=== PATIENT | female | born 1990 | race Caucasian/White ===

== ENCOUNTER → 2022-02-24 09:59 | Outpatient (CLI) | payer OTHER, SELFPAY ==
--- NOTE | 2022-02-24 10:06 | DI.RAD.S_ITS ---
PROCEDURE: XR KUB INDICATIONS: Irritable bowel vs constipation with diarrhea, assess stool TECHNIQUE: One view of the abdomen acquired. COMPARISON: None. FINDINGS: Surgical changes and devices: None. Bowel: Bowel gas pattern is nonspecific. Moderate amount of stool noted in the right proximal transverse colon. Soft tissues: No suspicious abdominal calcifications. Visualized solid organ contours appear normal in size. Bones: No suspicious bony lesions. IMPRESSION: Moderate stool in the right and proximal transverse colon. Bowel gas pattern is nonspecific. If patient's symptoms persist or worsen, consider CT scan of the abdomen/pelvis for additional evaluation. Dictated by: Savanah Oropeza MD, PhD on 02/24/2022 at 12:19 Approved by: Savanah Oropeza MD, PhD on 02/24/2022 at 12:20
== END ==
PROVIDERS: PCP Pediatrics; Referring Provider Pediatrics; Visit Provider Pediatrics
DX: K59.00 Constipation, unspecified (principal); F41.9 Anxiety disorder, unspecified; K58.9 Irritable bowel syndrome, unspecified
CPT/HCPCS: 74018

== ENCOUNTER → 2022-06-16 11:50 | Outpatient (CLI) | payer OTHER, SELFPAY ==
[2022-06-16 13:31] LABS: COVID19 -Nasal RAPID Negative (Negative)
== END ==
PROVIDERS: PCP Pediatrics; Visit Provider Surgery
DX: Z20.822 Contact with and (suspected) exposure to COVID-19 (principal); Z01.812 Encounter for preprocedural laboratory examination
CPT/HCPCS: 87635; C9803

== ENCOUNTER 2022-06-19 12:17 | Day surgery (SDC) | payer OTHER, SELFPAY ==
--- NOTE | 2022-06-19 | PATH_ITS ---
[facility] Accession Number: [id number] No. of containers..02 Tissue . 01 Material submitted: . PART A: duodenum - DUODENAL BIOPSIES PART B: colon - RANDOM COLON BIOPSIES . 01 Clinical history: . A: R/O CELIAC SPRU B: R/O MICROSCOPIC COLITIS . 01 Diagnosis: A. Duodenum, Biopsies: Duodenal mucosa with no diagnostic abnormality. Negative for active inflammation, features of sprue, dysplasia, or malignancy. . B. Random Colon, Biopsies: Colonic mucosa with no diagnostic abnormality. Negative for active, chronic, and microscopic colitis. Negative for dysplasia and malignancy. . MRV 06/22/2022 1843 Local . 01 Electronically signed: . Idalmis Sandoval MD, Pathologist NPI- [id number] . 01 Gross description: . Part A: DUODENAL BIOPSIES: Received in formalin are 3 fragment(s) of sheriff, soft tissue measuring 0.1 x 0.1 x 0.1 cm to 0.3 x 0.2 x 0.2 cm submitted entirely in 1 cassette(s) Part B: RANDOM COLON BIOPSIES: Received in formalin are multiple fragment(s) of sheriff, soft tissue measuring 0.1 x 0.1 x 0.1 cm to 0.2 x 0.2 x 0.2 cm submitted entirely in 1 cassette(s) /BENJAMIN 06/20/20222034 Local . 01 Pathologist provided ICD-10: R19.7 . 01 CPT . 302565, 412633 Specimen Comment: A courtesy copy of this report has been sent to [phone] Specimen Comment: [id number], Performed at: [facility] [address] [place], [place] [id number] MD Rocky Kan MD Phone: [phone]
[2022-06-19 12:45] VITALS: BMI 25.2
[2022-06-19 12:54] VITALS: BP 106/72; PULSE 102; RESP 16; TEMP 36.7; O2SAT 99
[2022-06-19] MEDS: LACTATED RINGERS 1,000 ML 42 ML IV (12:59)
--- NOTE | 2022-06-19 13:22 | PM.HP.1 ---
History of Present Illness History of Present Illness Chief complaint: COLONOSCOPY & EGD W/POSS BX'S Patient History Medical History (Updated 03/13/22 @ 07:51 by Elmo Patel MD) Anxiety Constipation Encounter for counseling regarding contraception Encounter to establish care Irritable bowel Family & Social History Social History: household members spouse Tobacco & Substance use: Tobacco type cigarettes,e-cigarettes Smoking Status Current every day smoker alcohol intake current alcohol intake frequency holiday/special occasion Substance Use Type does not use Meds Home Medications and Allergies Home Medications Medication Instructions Recorded Confirmed Type drospirenone 3 mg-ethinyl 1 tab PO DAILY #28 tabs 02/24/22 06/19/22 Rx estradiol 0.02 mg tablet ([facility] (28)) Allergies Allergy/AdvReac Type Severity Reaction Status Date / Time pineapple Allergy Severe hot, Verified 06/19/22 12:44 itchy, tongue swells venom-wasp Allergy Severe Anaphylaxis Verified 06/19/22 12:44 Review of Systems Review of Systems Narrative: Negative Exam Vital Signs (past 8 hours): - 06/19/22 12:54 Temperature 98.0 F Pulse Rate 102 H Respiratory Rate 16 Blood Pressure 106/72 Pulse Oximetry 99 Oxygen Delivery Method Room Air Oxygen Delivery Method Room Air Narrative Exam Narrative: Awake alert and oriented x3, pupils equal round reactive to light, oropharynx clear, heart regular rate and rhythm, lungs clear to auscultation bilaterally, abdomen nontender and nondistended, extremities without edema, no gross neurologic deficits noted Assessment & Plan Assessment & Plan narrative: GERD, diarrhea, for EGD and colonoscopy Time Spent With Patient Critical Care time: I spent a total of [] minutes of critical care time on this patient's care today; this time is exclusive of procedural time.
--- NOTE | 2022-06-19 13:38 | PM.OP.EGD ---
Operative Date/Time/Diagnoses Date of procedure: 06/19/22 Procedure & Clinicians Study performed: EGD with cold biopsy Indications: Unexplained diarrhea, persistent GERD symptoms, melena Procedure Notes Procedure in detail: Prior to the procedure, history and physical was performed, and patient medications and allergies were reviewed. Preprocedure nursing history and assessment was reviewed. Patient identification and proposed procedure were verified by the physician and nurse in the procedure room. The physical status of the patient was reassessed after the procedure. After informed consent was obtained including risks, benefits, and alternatives, the scope was passed under direct vision. Throughout the procedure, the patient's blood pressure, pulse, and oxygen saturations were monitored continuously. The upper endoscope was introduced through the mouth and advanced to the 2nd portion of the duodenum. Retroflexion was performed in the stomach. The patient tolerated the procedure well. The entire examined esophagus was normal appearing. Z-line was regular and was located at 39 cm. The entire examined stomach was normal appearing. Hill grade 1 GE junction configuration. Normal-appearing examined duodenum. Biopsies taken to rule out celiac sprue Impression: Normal appearing esophagus. Regular Z-line Normal appearing stomach. Normal appearing duodenum. Biopsied to rule out celiac sprue Complications: other (EBL minimal. No complications) Post-procedure Plan for aftercare: Follow-up pathology results Follow Anti-reflux precautions Proceed with colonoscopy today
--- NOTE | 2022-06-19 13:56 | PM.OP.COLON ---
Operative Date/Time/Diagnoses Date of procedure: 06/19/22 Procedure & Clinicians Study performed: Colonoscopy with cold biopsy Indications: Unexplained diarrhea. This is the patient's 1st colonoscopy. Procedure Notes Procedure in detail: Prior to the procedure, history and physical was performed, and patient medications and allergies were reviewed. Preprocedure nursing history and assessment was reviewed. Patient identification and proposed procedure were verified by the physician and nurse in the procedure room. The physical status of the patient was reassessed after the procedure. After informed consent was obtained including risks, benefits, and alternatives, the scope was passed under direct vision. Throughout the procedure, the patient's blood pressure, pulse, and oxygen saturations were monitored continuously. The colonoscope was introduced through the anus and advanced to the cecum as identified by the appendiceal orifice and ileocecal valve. The terminal ileum was intubated. The patient tolerated the procedure well. Bowel prep was deemed adequate to detect polyps greater than 5 mm. Perianal and digital rectal examinations were unremarkable. Retroflexion in the rectum was unrevealing. The entire examined colon was normal appearing except for the sigmoid where mucosa appeared slightly congested. Biopsies were taken throughout the colon to rule out microscopic colitis. The terminal ileum was normal appearing. Impression: Normal appearing colonic mucosa except in the sigmoid where mucosa was slightly congested appearing. Biopsies taken from throughout the colon to rule out microscopic colitis Normal-appearing terminal ileum Complications: other (EBL minimal. No complications) Post-procedure Plan for aftercare: Follow-up of pathology results No recommendation regarding timing of next colonoscopy due to young age Resume home medications Resume previous diet Patient has a contact number available for emergencies. The signs and symptoms of potential delayed complications were discussed with the patient. Return to normal activities tomorrow. Written discharge instructions were provided to the patient. Discharge home with escort
[2022-06-19 14:00] VITALS: BP 92/62; PULSE 88; RESP 17; TEMP 36.9; O2SAT 98
[2022-06-19 14:05] VITALS: BP 97/67; PULSE 79; RESP 20; O2SAT 99
[2022-06-19 14:26] VITALS: BP 104/70; PULSE 76; RESP 12; TEMP 36.1; O2SAT 100
== END 2022-06-19 14:30 | disposition home or self-care (01) ==
PROVIDERS: PCP Family Medicine; Referring Provider Internal Medicine; Visit Provider Internal Medicine
PROC: 0DJ08ZZ Inspection of Upper Intestinal Tract, Via Natural or Artificial Opening Endoscopic (ICD-10-PCS; CPT 43235; principal; 2022-06-19 13:30)
PROC: 0DJD8ZZ Inspection of Lower Intestinal Tract, Via Natural or Artificial Opening Endoscopic (ICD-10-PCS; CPT 45378; 2022-06-19 13:30)
DX: R19.7 Diarrhea, unspecified (principal); K92.1 Melena; K21.9 Gastro-esophageal reflux disease without esophagitis
CPT/HCPCS: 45380; 43239; J2704; J3010

== ENCOUNTER → 2023-01-09 10:36 | Outpatient (CLI) | payer OTHER, SELFPAY ==
[2023-01-09 11:42] LABS: Alanine Aminotransferase 18 IU/L (<35); Albumin 4.3 g/dL (3.5-5.0); Albumin Globulin Ratio 1.5 (1.0-2.8); Alkaline Phosphatase 49 U/L (38-126); Aspartate Aminotransferase 20 IU/L (14-36); BUN Creatinine Ratio 13.7 (6-22); Bilirubin Total 0.5 mg/dL (0.2-1.3); Blood Urea Nitrogen 7 mg/dL (7-17); Calcium 8.8 mg/dL (8.4-10.2); Carbon Dioxide 23 mmol/L (22-32); Chloride 104 mmol/L (98-107); Estimated Glomerular Filt Rate > 60 mL/min (>60); Globulin 2.8 g/dL (1.7-4.1); Glucose 96 mg/dL (70-100); HEMOLYSIS < 15 (0-50); Potassium 3.7 mmol/L (3.4-5.1); Sodium 136 mmol/L (137-145); Total Protein 7.1 g/dL (6.3-8.2)
[2023-01-09 11:46] LABS: High Sensitivity CRP - Cardiac 0.6 mg/L (1.0-3.0)
[2023-01-09 13:18] LABS: Free T3, Triiodothyronine Free 4.07 pg/mL (2.77-5.27); Free T4, Direct Thyroxine 1.27 ng/dL (0.78-2.19)
[2023-01-09 13:32] LABS: Thyroid Stimulating Hormone 2.05 uIU/mL (0.47-4.68)
[2023-01-10 07:34] LABS: Sex Hormone Binding Globulin 36.8 nmol/L (24.6-122.0)
[2023-01-12 22:20] LABS: Estrogen 173 pg/mL (.)
[2023-01-16 07:50] LABS: Percent Free Testosterone 1.82 % (0.50-2.80); Testosterone Total 32.9 ng/dL (10.0-55.0)
[2023-01-23 22:22] LABS: % Free Progesterone 1.5 % (.); Free Progesterone 2.5 ng/dL (.); Progesterone, Serum 168 ng/dL (.)
== END ==
PROVIDERS: PCP Family Medicine; Referring Provider Family Medicine; Visit Provider Family Medicine
DX: E34.9 Endocrine disorder, unspecified (principal); E55.9 Vitamin D deficiency, unspecified; K52.9 Noninfective gastroenteritis and colitis, unspecified; R14.0 Abdominal distension (gaseous); R53.83 Other fatigue
CPT/HCPCS: 36415; 80053; 82306; 82627; 82672; 84144; 84270; 84402; 84403; 84439; 84443; 84481; 84999; 86140

== ENCOUNTER 2023-02-08 11:24 | Day surgery (SDC) | payer OTHER, SELFPAY ==
[2023-02-05 08:06] VITALS: BMI 25.4
[2023-02-08] VITALS (9 sets, daily range): BP systolic 100–111; BP diastolic 62–75; PULSE 62–86; RESP 12–17; TEMP 36.1–36.6; O2SAT 98–100; BMI 23.8
--- NOTE | 2023-02-08 | PATH_ITS ---
[facility] Accession Number: [id number] No. of containers..01 Tissue . 01 Material submitted: . fallopian tube - BILATERAL FALLOPIAN TUBES . 01 Diagnosis: Bilateral Fallopian Tubes: First described fallopian tube, complete cross-sections; negative for significant atypia. Second described fallopian tube, complete cross-sections, with a benign paratubal cyst (3 mm); negative for significant atypia. MRV 02/12/2023 1517 Local . 01 Electronically signed: . Keesha Richardson MD, Pathologist NPI- [id number] . 01 Gross description: . The specimen is received in formalin labeled with the patient's name, , and bilateral fallopian tubes consists of two unoriented, violaceous, fimbriated fallopian tubes. The first measures 3.8 cm in length and 0.7 cm in diameter. No paratubal cysts are seen. The external surface is inked blue. The second measures 5.5 cm in length and 1.0 cm in diameter. A single serous fluid-filled, smooth-lined, paratubal cyst is noted measuring 0.3 cm in greatest dimension. The external surface is inked black. Funeral Attendant sections to include each bisected fimbriae, paratubal cyst, and cross-sections of tube are submitted in cassettes A1-A2. ([id number]) /MRV 02/09/2023 1304 Local . 01 Pathologist provided ICD-10: Z30.2 . 01 CPT . 926672 Specimen Comment: A courtesy copy of this report has been sent to [phone] Performed at: [facility] [address] [place] [address], [place], [place] [id number] MD Rocky Kan MD Phone: [phone]
--- NOTE | 2023-02-08 13:02 | SUR.PREOP ---
Notified patient of continued delay. Verbalizes understanding. Advised patient that she could return to the Surgical waiting room at 4:00 p.m
--- NOTE | 2023-02-08 16:33 | P.HPOB_ITS ---
History of Present Illness History of Present Illness Narrative: Nubia Corado is a 32 year old female 1 para 0 who presents for a laparoscopic bilateral salpingectomy for sterilization. [facility] Medical History ADHD (~2004) Anxiety (~2009) Astigmatism Autism Chicken pox (~1995) Constipation Encounter for counseling regarding contraception Encounter to establish care Foot pain (~2009) Heavy menstrual period (~2000) Irregular menstrual cycle (~2000) Irritable bowel Migraines (~2002) Ovarian cyst (~2015) Plantar warts (~1998) Substance abuse (~2007) Surgical History Anesthesia History of (~2010) History of oral surgery (~2001) Family History Mother Multiple sclerosis Father Mental health problem Grandfather Pneumonia Grandmother Hypertension Grandfather Alzheimer's dementia Grandmother Mental health problem Social History household members: spouse Smoking Status: Current every day smoker Tobacco: How many years used: 14 Smokeless tobacco user: other (nicotine vape ) alcohol intake: current substance use type: former substance user and marijuana (former ) Meds Home Medications and Allergies Home Medications Medication Instructions Recorded Confirmed Type epinephrine 0.3 mg/0.3 mL 0.3 mg (0.3 mL) IM ONCE #2 ea 02/06/23 02/08/23 Rx injection, auto-injector prasterone (dhea) 50 mg capsule 100 mg PO DAILY 02/08/23 02/08/23 History (DHEA) Allergies Allergy/AdvReac Type Severity Reaction Status Date / Time pineapple Allergy Severe hot, Verified 01/23/23 15:03 itchy, tongue swells venom-wasp Allergy Severe Anaphylaxis Verified 01/23/23 15:03 Exam Vital Signs (past 8 hours): - 02/08/23 15:57 Temperature 97.5 F L Pulse Rate 86 Respiratory Rate 16 Blood Pressure 103/72 Pulse Oximetry 100 Oxygen Delivery Method Room Air Oxygen Delivery Method Room Air Narrative Exam Narrative: HEENT: No thyromegaly, no anterior cervical or supraclavicular lymphadenopathy. Lungs:Clear to auscultation bilaterally, no wheezes. Cardiovascular: Regular rate and rhythm, no murmurs, rubs, or gallops. Abdomen: No scars. No hepatosplenomegaly. No masses palpable. External genitalia: Normal Vagina: Normal Cervix: Normal Bimanual exam: 6 Week size uterus. Mobile. Extremities: No edema Assessment & Plan Assessment & Plan narrative: Assessment: 32-year-old 1 para 0 who desires permanent sterilization Plan: Laparoscopic bilateral salpingectomy The risks, benefits, and alternatives to the procedure were explained to the patient. The risks including bleeding, infection, injury to the bowel, bladder, or ureters. She understands these risks and agrees to proceed. A full par Q was held and consent form was signed. Time Spent With Patient Time with patient: less than 30 minutes
--- NOTE | 2023-02-08 16:35 | SUR.OPER ---
Lithotomy on padded OR bed, head on pillow, arms secured on padded arm boards at <90 degrees abduction. Legs secured in padded yellow fins stirrups.
--- NOTE | 2023-02-08 16:36 | PM.PREOP ---
Pre-operative Note COVID-19 Criteria for continued procedure: Non-surgical alternatives not available or appropriate per current SOC Interval Note History & Physical reviewed/Exam performed by Physician: Yes Changes to H&P: No H&P completed within 30 days and has changed as indicated here:: 02/08/23
[2023-02-08] MEDS: BUPIVACAINE 0.25% (PF) 30 ML, EPINEPHrine 0.15 MG INJ (17:29)
--- NOTE | 2023-02-08 17:57 | PM.GYNOP.1 ---
Operative Date/Time/Diagnoses Date of procedure: 02/08/23 Time of procedure: 17:57 Pre-op diagnosis: Desires permanent sterilization Post-op diagnosis: same Procedure & Clinicians Procedure: Procedures Operation Date: 02/08/23 14:00 Actual Procedure Side Surgeon p Laparoscopic Salpingectomy Bilateral Sabine Roman MD Indications: Desires permanent sterilization Surgeon: Sabine Roman Anesthesia Type: General and Local Operative Notes Findings: 8 week size anteverted uterus Posterior fundal fibroid measuring 2 cm that was subserosal Normal ovaries bilaterally Normal tubes bilaterally Normal liver Normal appendix Significant endometriotic lesions of the anterior and posterior cul-de-sac as well as bilateral ovarian fossa and fundus of the uterus. Largest lesion measuring 8 mm. These were both clear and blue lesions. Endometriotic lesion of the serosa of the colon measuring 7 mm. 2 cm x 1 cm pedunculated fibroid coming off of the colon Closure Type: primary Specimen(s): left tube and right tube Estimated blood loss (mL): 10 Blood products transfused: none Procedure in detail: After informed consent was obtained, the patient was taken to the operating room where she was placed in the dorsal supine position. After adequate general endotracheal anesthesia was achieved, she was placed in the dorsal lithotomy position, and prepped and draped in the usual sterile fashion. A time-out was performed. A bivalve speculum was placed into the vagina and the anterior lip of the cervix was grasped with a single-tooth tenaculum. The cervical os was sequentially dilated until the Zumi uterine manipulator could pass easily into the endometrial cavity. The single-tooth tenaculum was removed from the anterior lip of the cervix. The bivalve speculum was removed from the vagina. Attention was turned to the abdomen where 6 cc of 0.5% Marcaine with epinephrine were injected in the umbilical fold. A 5 mm incision was made. The Veress needle was placed into the peritoneal cavity, and its placement confirmed by aspiration and drop test. The abdominal cavity was insufflated with 3 L of CO2. The Veress needle was removed, and a 5 mm trocar was placed without difficulty. Two other incisions were made 4 cm lateral to the midline at the level of the umbilicus after 6 cc of 0.5% Marcaine with epinephrine were injected. Two 5 mm trocars were placed under direct visualization. The abdomen and pelvis were examined with the findings noted above. The right tube was grasped with an atraumatic grasper. Using the power seal, the mesosalpinx was cauterized and cut all the way down to the cornua of the uterus. The tube was amputated at the cornua. The tube was removed through the right lateral trocar. This was repeated on the patient's left side. There was a small amount of bleeding noted from the cornual region of the left uterus. This was cauterized with the power seal for hemostasis. The pelvis was irrigated with warm normal saline. There was no bleeding noted. The instruments were removed from the abdomen. The CO2 was allowed to escape. The incisions were repaired with 4-0 Monocryl in a subcuticular fashion. Steri-Strips and Allevyn dressings were placed. The Zumi uterine manipulator was removed from the uterus. Sponge, lap, and instrument counts were correct x2. The patient tolerated the procedure well, and was taken to PACU in stable condition. Complications: none Post-operative Condition: stable Disposition: PACU Plan for aftercare: Home after recovery
[2023-02-08] MEDS: ONDANSETRON 4 MG/2 ML INJ IV (18:00)
--- NOTE | 2023-02-08 18:12 | SUR.PHASEI ---
Dr Murray notified of patient nausea after zofran and history of car sickness.
[2023-02-08] MEDS: SCOPOLAMINE 1 PATCH TOP (18:16)
[2023-02-08] MEDS: ACETAMINOPHEN IV 1,000 MG/100 ML VIAL 400 MG IV (18:17)
[2023-02-08] MEDS: LACTATED RINGERS 1,000 ML 100 ML IV (18:19)
[2023-02-08] MEDS: BENZOCAINE/MENTHOL 1 LOZ PKT 1 EACH PO (18:52)
--- NOTE | 2023-02-08 19:16 | SUR.PHASEII ---
Dr Murray called for Cepacol sawyer order for irritated throat adn irritated cough. lungs clear. no sob. coughing subsided with sawyer.
== END 2023-02-08 19:07 | disposition home or self-care (01) ==
PROVIDERS: PCP Family Medicine; Referring Provider Obstetrics & Gynecology; Visit Provider Obstetrics & Gynecology
PROC: 0UT74ZZ Resection of Bilateral Fallopian Tubes, Percutaneous Endoscopic Approach (ICD-10-PCS; CPT 58661; principal; 2023-02-08 14:00)
DX: Z30.2 Encounter for sterilization (principal); D25.2 Subserosal leiomyoma of uterus; D12.6 Benign neoplasm of colon, unspecified; N83.8 Other noninflammatory disorders of ovary, fallopian tube and broad ligament
CPT/HCPCS: 58661; J0131; J0171; J1885; J2250; J2405; J2704; J3010

== ENCOUNTER → 2023-02-12 14:51 | Outpatient (CLI) | payer OTHER, SELFPAY ==
[2023-02-12 15:57] LABS: Appearance Urine UA CLEAR; Bilirubin Urine UA NEGATIVE (NEGATIVE); Color Urine UA YELLOW; Glucose Urine UA NEGATIVE (Negative); Ketones Urine UA NEGATIVE (NEGATIVE); Leukocyte Esterase Urine UA TRACE (NEGATIVE); Nitrite Urine UA NEGATIVE (Negative); Occult Blood Urine UA NEGATIVE (Negative); Protein Urine UA NEGATIVE (Negative); Urobilinogen Urine UA 0.2 E.U./dL (0.2)
[2023-02-12 16:14] LABS: pH Urine UA 7.5 (4.5-8.0)
[2023-02-12 16:26] LABS: Bacteria Urine Occasional (0-1); RBC Urine None Seen (0-5/HPF); Squamous Epithelial Cell Urine 0-1 /HPF (0-5/HPF); WBC Urine 5-10/HPF (0-5/HPF)
[2023-02-12 16:27] LABS: Culture Indicated Urine Specimen Cultured
== END ==
PROVIDERS: PCP Family Medicine; Referring Provider Obstetrics & Gynecology; Visit Provider Obstetrics & Gynecology
DX: R30.0 Dysuria (principal)
CPT/HCPCS: 81001; 87086

== ENCOUNTER → 2023-05-24 12:39 | Outpatient (CLI) | payer OTHER, SELFPAY | PROVIDERS: PCP Family Medicine; Visit Provider Nurse Practitioner Family | DX: R30.0 Dysuria (principal) | CPT/HCPCS: 87086 ==

== ENCOUNTER 2023-05-24 13:10 | Emergency (ER) | payer OTHER, SELFPAY ==
[2023-05-24] VITALS (9 sets, daily range): BP systolic 92–124; BP diastolic 60–69; PULSE 74–83; RESP 18; TEMP 36.9; O2SAT 97–100; BMI 24.8
[2023-05-24 13:37] LABS: Add Manual Diff / Slide Review NO; Basophils Absolute Auto 100 /uL (0-100); Basophils Percent Auto 0.8 % (0-2); Eosinophils Absolute Auto 100 /uL (0-450); Eosinophils Percent Auto 0.7 % (2-4); Hematocrit 37.8 % (36-46); Hemoglobin 12.8 g/dL (12.0-16.0); Lymphocytes Absolute Auto 4000 /uL (1100-4500); Lymphocytes Percent Auto 28.8 % (25-40); Mean Corpuscular HGB Conc 33.9 % (30-36); Mean Corpuscular Hemoglobin 29.1 PG (26-34); Mean Corpuscular Volume 85.8 fL (80-100); Monocytes Absolute Auto 900 /uL (0-900); Monocytes Percent Auto 6.6 % (3-14); Neutrophils Absolute Auto 8700 /uL (1500-7000); Neutrophils Percent Auto 63.1 % (50-75); Platelet Count 446 X10^3/uL (150-400); Red Blood Cell Count 4.41 X10^6/uL (4.0-5.2); Red Cell Distribution Width 12.6 % (11.6-14.8); White Blood Cell Count 13.8 X10^3/uL (4.5-11.0)
--- NOTE | 2023-05-24 13:37 | DI.CT.S_ITS ---
PROCEDURE: CT ABDOMEN PELVIS W CON INDICATIONS: abd pain with UTI, eval for pyelo, appy TECHNIQUE: After the administration of intravenous contrast, axial sections acquired from the lung bases to the pubic symphysis. Coronal and sagittal reformats were performed. For radiation dose reduction, the following was used: automated exposure control, adjustment of mA and/or kV according to patient size. COMPARISON: None. FINDINGS: Image quality: Excellent. Lung bases: Unremarkable. Heart: No significant findings. ABDOMEN: Liver: Unremarkable. Gallbladder: Unremarkable. Biliary ducts: Unremarkable. Pancreas: Unremarkable. Spleen: Unremarkable. Adrenal Glands: Unremarkable. Kidneys and Ureters: Bilateral, homogeneous enhancement. Marked right urothelial hyperenhancement. Stomach and Bowel: Stomach, small bowel loops, and colon are unremarkable. Normal appendix. Peritoneum: No abnormal intraperitoneal fluid. No free air. Ventral Wall: No hernias. Abdominal Nodes: No retroperitoneal or mesenteric adenopathy by size criteria. Vessels: Aorta and inferior vena cava are normal in size. PELVIS: Pelvic Organs: Multiple small uterine fibroids.. Bladder: Unremarkable. Pelvic Nodes: No enlarged lymph nodes. Miscellaneous: No hernias are seen. Bones: Unremarkable. IMPRESSION: Marked right urothelial hyperenhancement, concerning for an ascending urinary tract infection. No CT evidence of pyelonephritis. Normal appendix. Dictated by: Dimitri Smith M.D. on 05/24/2023 at 14:10 Approved by: Dimitri Smith M.D. on 05/24/2023 at 14:12
[2023-05-24 13:44] LABS: Alanine Aminotransferase 18 IU/L (<35); Albumin 4.4 g/dL (3.5-5.0); Albumin Globulin Ratio 1.4 (1.0-2.8); Alkaline Phosphatase 67 U/L (38-126); Aspartate Aminotransferase 22 IU/L (14-36); BUN Creatinine Ratio 12.5 (6-22); Bilirubin Total 0.7 mg/dL (0.2-1.3); Blood Urea Nitrogen 7 mg/dL (7-17); Calcium 9.4 mg/dL (8.4-10.2); Carbon Dioxide 25 mmol/L (22-32); Chloride 101 mmol/L (98-107); Estimated Glomerular Filt Rate > 60 mL/min (>60); Globulin 3.1 g/dL (1.7-4.1); Glucose 88 mg/dL (70-100); HEMOLYSIS < 15 (0-50); Lipase 97 U/L (23-300); Potassium 3.6 mmol/L (3.4-5.1); Sodium 136 mmol/L (137-145); Total Protein 7.5 g/dL (6.3-8.2)
[2023-05-24] MEDS: MORPHINE 2 MG/ML INJ IV (13:50)
[2023-05-24] MEDS: ONDANSETRON 4 MG/2 ML INJ IV (13:50)
[2023-05-24] MEDS: SODIUM CHLORIDE 0.9% 500 ML 1000 ML IV (13:51)
--- NOTE | 2023-05-24 13:55 | ED_ITS ---
HPI - Abdominal Pain <Tameka Aparicio PA-C - Last Filed: 05/24/23 16:51> General Chief Complaint: Abdominal Pain Stated Complaint: UTI+/ pain Rside/ T-2/ WIC sent over Time Seen by Provider: 05/24/23 13:24 Source: patient Mode of arrival: Ambulatory History of Present Illness HPI narrative: Patient is a 32-year-old female who presents with right lower abdominal pain that radiates into her back. She was seen in this morning in the walk-in clinic and diagnosed with a urinary tract infection and presents to the emergency department for further evaluation. She denies any recent fever or chills, nausea vomiting. Has not seen any hematuria but does endorse dysuria or frequency. Pain is worse with ambulation. Has not taken any pain medication. Related Data Home Medications Medication Instructions Recorded Confirmed prasterone (dhea) 50 mg capsule 100 mg PO DAILY 02/08/23 05/24/23 (DHEA) Previous Rx's Medication Instructions Recorded epinephrine 0.3 mg/0.3 mL 0.3 mg (0.3 mL) IM ONCE #2 ea 02/06/23 injection, auto-injector ondansetron 4 mg disintegrating 4 mg PO Q6H PRN nausea and 02/08/23 tablet vomiting #10 tabs oxycodone 5 mg tablet 5 mg PO Q4H PRN pain #14 tabs 02/08/23 nitrofurantoin 100 mg PO BID #10 caps 02/12/23 monohydrate/macrocrystals 100 mg capsule (Macrobid) sulfamethoxazole 800 1 tab PO BID #14 tabs 05/24/23 mg-trimethoprim 160 mg tablet (Bactrim DS) Allergies Allergy/AdvReac Type Severity Reaction Status Date / Time pineapple Allergy Severe hot, Verified 05/24/23 12:36 itchy, tongue swells venom-wasp Allergy Severe Anaphylaxis Verified 05/24/23 12:36 Review of Systems <Tameka Aparicio PA-C - Last Filed: 05/24/23 16:51> Review of Systems ROS Unobtainable: All systems reviewed & are unremarkable except as noted in HPI and below Patient History <Tameka Aparicio PA-C - Last Filed: 05/24/23 16:51> Medical History ADHD (~2004) Anxiety (~2009) Astigmatism Autism Chicken pox (~1995) Constipation Encounter for counseling regarding contraception Encounter to establish care Foot pain (~2009) Heavy menstrual period (~2000) Irregular menstrual cycle (~2000) Irritable bowel Migraines (~2002) Ovarian cyst (~2015) Plantar warts (~1998) Substance abuse (~2007) Surgical History Anesthesia History of (~2010) History of oral surgery (~2001) Family History Mother Multiple sclerosis Father Mental health problem Grandfather Pneumonia Grandmother Hypertension Grandfather Alzheimer's dementia Grandmother Mental health problem Social History household members: spouse Smoking Status: Current every day smoker Tobacco: How many years used: 14 Smokeless tobacco user: other (nicotine vape ) alcohol intake: current substance use type: former substance user and marijuana (former ) Smoking Status: Current every day smoker tobacco type: vaping alcohol intake frequency: holidays/special occasions only Substance Use Type: does not use and former substance user Exam <Tameka Aparicio PA-C - Last Filed: 05/24/23 16:51> Narrative Exam Narrative: GENERAL: 32 year old patient appears stated age. Well-developed patient, in mild distress. NEURO: AOx3. HEAD: Atraumatic. Normocephalic. EYES: Pupils equal round and reactive. Extraocular motions intact. No scleral icterus. No injection or drainage. ENT: Nose without bleeding or purulent drainage. Airway patent. NECK: Trachea midline. Non tender CARDIOVASCULAR: Regular rate and rhythm without murmurs, gallops, or rubs. RESPIRATORY: Clear to auscultation. Breath sounds equal bilaterally. No wheezes, rales, or rhonchi. GASTROINTESTINAL: Abdomen soft, focal right lower tenderness superior to McBurney's, negative Messer's, positive CVA tenderness on the right. EXTREMITIES: No edema or joint tenderness. SKIN: No rash or erythema of visible areas Initial Vital Signs Initial Vital Signs: Vital Signs Temperature 98.4 F 05/24/23 13:13 Pulse Rate 76 05/24/23 13:13 Respiratory Rate 18 05/24/23 13:13 Blood Pressure 124/60 05/24/23 13:13 Pulse Oximetry 100 05/24/23 13:13 Oxygen Delivery Method Room Air 05/24/23 13:13 <Lloyd Hannon MD - Last Filed: 06/08/23 08:38> Initial Vital Signs Initial Vital Signs: Vital Signs Temperature 98.4 F 05/24/23 13:13 Pulse Rate 76 05/24/23 13:13 Respiratory Rate 18 05/24/23 13:13 Blood Pressure 124/60 05/24/23 13:13 Pulse Oximetry 100 05/24/23 13:13 Oxygen Delivery Method Room Air 05/24/23 13:13 Course <Tameka Aparicio PA-C - Last Filed: 05/24/23 16:51> Orders Ordered: Discontinued Medications Sodium Chloride (Normal Saline 0.9%) 500 mls @ 1,000 mls/hr IV BOLUS ONE Stop: 05/24/23 14:06 Last Infusion: 05/24/23 14:20 Dose: Infused Documented By: Admin: 05/24/23 13:51 Dose: 1,000 mls/hr Documented By: Ceftriaxone Sodium 1,000 mg/ (Sodium Chloride) 100 mls @ 200 mls/hr IV NOW ONE Stop: 05/24/23 14:19 Last Infusion: 05/24/23 15:20 Dose: Infused Documented By: Admin: 05/24/23 14:48 Dose: 200 mls/hr Documented By: Morphine Sulfate (Morphine 2 Mg/Ml Inj) 2 mg IV NOW ONE Stop: 05/24/23 13:38 Last Admin: 05/24/23 13:50 Dose: 2 mg Documented By: Ondansetron HCl (Ondansetron 4 Mg/2 Ml Inj) 4 mg IV NOW PRN PRN Reason: Nausea And Vomiting Ondansetron HCl (Ondansetron 4 Mg/2 Ml Inj) 4 mg IV NOW ONE Stop: 05/24/23 13:38 Last Admin: 05/24/23 13:50 Dose: 4 mg Documented By: ST Vital Signs Vital signs: Vital Signs - 8 hr 05/24/23 13:13 05/24/23 14:10 05/24/23 14:30 Temperature 98.4 F Pulse Rate 76 81 74 Respiratory Rate 18 Blood Pressure 124/60 Pulse Oximetry 100 97 98 Oxygen Delivery Method Room Air 05/24/23 14:37 05/24/23 14:37 05/24/23 15:33 Temperature 98.5 F Pulse Rate 77 Respiratory Rate Blood Pressure 102/68 Pulse Oximetry 99 Oxygen Delivery Method Room Air 05/24/23 14:54 05/24/23 14:54 05/24/23 14:55 Temperature Pulse Rate 82 Respiratory Rate Blood Pressure 92/68 104/68 Pulse Oximetry 97 Oxygen Delivery Method 05/24/23 14:55 05/24/23 15:00 05/24/23 15:00 Temperature Pulse Rate 83 77 Respiratory Rate Blood Pressure 99/61 Pulse Oximetry 99 100 Oxygen Delivery Method 05/24/23 15:22 05/24/23 15:22 Temperature Pulse Rate 76 Respiratory Rate Blood Pressure 98/69 Pulse Oximetry 99 Oxygen Delivery Method <Lloyd Hannon MD - Last Filed: 06/08/23 08:38> Orders Ordered: Discontinued Medications Sodium Chloride (Normal Saline 0.9%) 500 mls @ 1,000 mls/hr IV BOLUS ONE Stop: 05/24/23 14:06 Last Infusion: 05/24/23 14:20 Dose: Infused Documented By: Admin: 05/24/23 13:51 Dose: 1,000 mls/hr Documented By: Ceftriaxone Sodium 1,000 mg/ (Sodium Chloride) 100 mls @ 200 mls/hr IV NOW ONE Stop: 05/24/23 14:19 Last Infusion: 05/24/23 15:20 Dose: Infused Documented By: Admin: 05/24/23 14:48 Dose: 200 mls/hr Documented By: Morphine Sulfate (Morphine 2 Mg/Ml Inj) 2 mg IV NOW ONE Stop: 05/24/23 13:38 Last Admin: 05/24/23 13:50 Dose: 2 mg Documented By: Ondansetron HCl (Ondansetron 4 Mg/2 Ml Inj) 4 mg IV NOW PRN PRN Reason: Nausea And Vomiting Ondansetron HCl (Ondansetron 4 Mg/2 Ml Inj) 4 mg IV NOW ONE Stop: 05/24/23 13:38 Last Admin: 05/24/23 13:50 Dose: 4 mg Documented By: ST Vital Signs Vital signs: Vital Signs - 8 hr 05/24/23 13:13 05/24/23 14:10 05/24/23 14:30 Temperature 98.4 F Pulse Rate 76 81 74 Respiratory Rate 18 Blood Pressure 124/60 Pulse Oximetry 100 97 98 Oxygen Delivery Method Room Air 05/24/23 14:37 05/24/23 14:37 05/24/23 15:33 Temperature 98.5 F Pulse Rate 77 Respiratory Rate Blood Pressure 102/68 Pulse Oximetry 99 Oxygen Delivery Method Room Air 05/24/23 14:54 05/24/23 14:54 05/24/23 14:55 Temperature Pulse Rate 82 Respiratory Rate Blood Pressure 92/68 104/68 Pulse Oximetry 97 Oxygen Delivery Method 05/24/23 14:55 05/24/23 15:00 05/24/23 15:00 Temperature Pulse Rate 83 77 Respiratory Rate Blood Pressure 99/61 Pulse Oximetry 99 100 Oxygen Delivery Method 05/24/23 15:22 05/24/23 15:22 Temperature Pulse Rate 76 Respiratory Rate Blood Pressure 98/69 Pulse Oximetry 99 Oxygen Delivery Method MDM - Abdominal Pain <Tameka Aparicio PA-C - Last Filed: 05/24/23 16:51> Lab Data 05/24/23 13:24 05/24/23 13:24 Labs: Lab Results 05/24/23 Range/Units 13:24 WBC 13.8 H (4.5-11.0) X10^3/uL RBC 4.41 (4.0-5.2) X10^6/uL Hgb 12.8 (12.0-16.0) g/dL Hct 37.8 (36-46) % MCV 85.8 (80-100) fL MCH 29.1 (26-34) PG MCHC 33.9 (30-36) % RDW 12.6 (11.6-14.8) % Plt Count 446 H (150-400) X10^3/uL Neut % (Auto) 63.1 (50-75) % Lymph % (Auto) 28.8 (25-40) % [place] % (Auto) 6.6 (3-14) % Eos % (Auto) 0.7 L (2-4) % Baso % (Auto) 0.8 (0-2) % Neut # (Auto) 8700 H (9324-2615) /uL Lymph # (Auto) 4000 (2481-5956) /uL [place] # (Auto) 900 (0-900) /uL Eos # (Auto) 100 (0-450) /uL Baso # (Auto) 100 (0-100) /uL Sodium 136 L (137-145) mmol/L Potassium 3.6 (3.4-5.1) mmol/L Chloride 101 (98-107) mmol/L Carbon Dioxide 25 (22-32) mmol/L BUN 7 (7-17) mg/dL Creatinine 0.56 (0.52-1.04) mg/dL Estimated GFR > 60 (>60) mL/min BUN/Creatinine Ratio 12.5 (6-22) Glucose 88 (70-100) mg/dL Calcium 9.4 (8.4-10.2) mg/dL Total Bilirubin 0.7 (0.2-1.3) mg/dL AST 22 (14-36) IU/L ALT 18 (<35) IU/L Alkaline Phosphatase 67 (38-126) U/L Total Protein 7.5 (6.3-8.2) g/dL Albumin 4.4 (3.5-5.0) g/dL Globulin 3.1 (1.7-4.1) g/dL Albumin/Globulin Ratio 1.4 (1.0-2.8) Lipase 97 (23-300) U/L Imaging Data CT scan - abdomen/pelvis: Radiologist's Impression: PROCEDURE:? CT ABDOMEN PELVIS W CON ? INDICATIONS:? abd pain with UTI, eval for pyelo, appy ? TECHNIQUE:? After the administration of intravenous contrast, axial sections acquired from the lung bases to the pubic symphysis.? Coronal and sagittal reformats were performed.? For radiation dose reduction, the following was used:? automated exposure control, adjustment of mA and/or kV according to patient size.? ? COMPARISON:? None. ? FINDINGS:? Image quality:? Excellent.? ? Lung bases:? Unremarkable. Heart:? No significant findings. ? ABDOMEN: Liver:? Unremarkable.? ? Gallbladder:? Unremarkable.? ? Biliary ducts:? Unremarkable.? ? Pancreas:? Unremarkable.? ? Spleen:? Unremarkable.? ? Adrenal Glands:? Unremarkable.? ? Kidneys and Ureters:? Bilateral, homogeneous enhancement.? Marked right urothelial hyperenhancement. ? Stomach and Bowel:? Stomach, small bowel loops, and colon are unremarkable.? Normal appendix. Peritoneum:? No abnormal intraperitoneal fluid.? No free air.? ? Ventral Wall: ? No hernias.? Abdominal Nodes:? No retroperitoneal or mesenteric adenopathy by size criteria.? Vessels:? Aorta and inferior vena cava are normal in size.? ? PELVIS: Pelvic Organs:? Multiple small uterine fibroids..? ? Bladder:? Unremarkable.? ? Pelvic Nodes: No enlarged lymph nodes.? Miscellaneous: No hernias are seen. ? ? ? Bones:? Unremarkable.? IMPRESSION:? Marked right urothelial hyperenhancement, concerning for an ascending urinary tract infection.? No CT evidence of pyelonephritis. ? Normal appendix. ? ? Dictated by: Dimitri Smith M.D. on 05/24/2023 at 14:10 ? ? Approved by: Dimitri Smith M.D. on 05/24/2023 at 14:12 ? MDM Narrative Medical decision making narrative: Multiple etiologies for patient's symptoms considered including, but not limited to: UTI, appendicitis, pyelonephritis, kidney stone, ovarian torsion, TOA. Labs with leukocytosis with left shift, chemistry unremarkable. UA done in walk-in clinic with evidence of UTI. We will obtain CT abdomen pelvis with contrast to further evaluate. CT shows ureteral enhancement on the right without clear evidence of pyelonephritis. No other acute findings. We will treat with one dose of ceftriaxone IV in the emergency department and discharged with 7 days of Bactrim. Discussed findings with the patient who is agreeable to the plan of care. Patient's symptoms improved over duration of stay with above-stated therapies. Findings and discharge diagnosis discussed with patient/family followed by verbalization of understanding Return precautions discussed with patient/family whom verbalize understanding of diagnosis and plan <Lloyd Hannon MD - Last Filed: 06/08/23 08:38> Lab Data Labs: Lab Results 05/24/23 Range/Units 13:24 WBC 13.8 H (4.5-11.0) X10^3/uL RBC 4.41 (4.0-5.2) X10^6/uL Hgb 12.8 (12.0-16.0) g/dL Hct 37.8 (36-46) % MCV 85.8 (80-100) fL MCH 29.1 (26-34) PG MCHC 33.9 (30-36) % RDW 12.6 (11.6-14.8) % Plt Count 446 H (150-400) X10^3/uL Neut % (Auto) 63.1 (50-75) % Lymph % (Auto) 28.8 (25-40) % [place] % (Auto) 6.6 (3-14) % Eos % (Auto) 0.7 L (2-4) % Baso % (Auto) 0.8 (0-2) % Neut # (Auto) 8700 H (5581-4982) /uL Lymph # (Auto) 4000 (0917-1844) /uL [place] # (Auto) 900 (0-900) /uL Eos # (Auto) 100 (0-450) /uL Baso # (Auto) 100 (0-100) /uL Sodium 136 L (137-145) mmol/L Potassium 3.6 (3.4-5.1) mmol/L Chloride 101 (98-107) mmol/L Carbon Dioxide 25 (22-32) mmol/L BUN 7 (7-17) mg/dL Creatinine 0.56 (0.52-1.04) mg/dL Estimated GFR > 60 (>60) mL/min BUN/Creatinine Ratio 12.5 (6-22) Glucose 88 (70-100) mg/dL Calcium 9.4 (8.4-10.2) mg/dL Total Bilirubin 0.7 (0.2-1.3) mg/dL AST 22 (14-36) IU/L ALT 18 (<35) IU/L Alkaline Phosphatase 67 (38-126) U/L Total Protein 7.5 (6.3-8.2) g/dL Albumin 4.4 (3.5-5.0) g/dL Globulin 3.1 (1.7-4.1) g/dL Albumin/Globulin Ratio 1.4 (1.0-2.8) Lipase 97 (23-300) U/L Discharge Plan Departure Patient Disposition: Home Clinical Impression: Upper urinary tract infection Instructions: DI for Urinary Tract Infection (UTI) Activity Restrictions/Additional Instructions: *You have been diagnosed with urinary tract infection that extends up your right ureter. You were given a dose of IV antibiotics in the emergency department to kick start your treatment. I will prescribe 7 days of oral antibiotics. Please take all pills even if you are feeling better. Drink lots of water and get lots of rest. If you are not feeling better within 72 hours of starting the antibiotics, please return to the emergency department for re-evaluation. You can take Tylenol or ibuprofen for body aches and pain. *What to do: *Please continue to take your regular medications as directed. [x ] New medication prescriptions sent to your pharmacy: [facility] [ ] New medication written as a paper prescription [ ] No new medications given *Please follow up with your primary care provider in 2-3 days, call for an appointment. Let them know you were seen in the Emergency Department and that we ask that you be seen in follow up. We will electronically transmit a record of today's note if your PCP is in our system *If you do not have a primary care provider please contact the [facility] Resource line at [phone]. They will ask some questions about your medical history and help get you set up with a doctor in the community. *Return to Emergency Department if you should have any new, worsening or concerning symptoms, such as [fever greater than 101 F, shaking chills, worsening pain, persistent vomiting or other concerning symptoms]. Prescriptions: New sulfamethoxazole-trimethoprim [Bactrim DS] 800-160 mg tablet 1 tab PO BID Qty: 14 0RF No Action epinephrine 0.3 mg/0.3 mL auto-injector 0.3 mg IM ONCE Qty: 2 3RF Rx Instructions: may repeat once nitrofurantoin monohyd/m-cryst [Macrobid] 100 mg capsule 100 mg PO BID Qty: 10 0RF Rx Instructions: must administer with a meal/food DHEA 50 mg Capsule 100 mg PO DAILY oxycodone 5 mg tablet 5 mg PO Q4H PRN (Reason: pain) Qty: 14 0RF ondansetron 4 mg tablet,disintegrating 4 mg PO Q6H PRN (Reason: nausea and vomiting) Qty: 10 0RF Referrals: Denise Amaya DO [Primary Care Provider] - Stand Alone Forms: Patient Portal/API, Work Release Note ED Sign-out <Lloyd Hannon MD - Last Filed: 06/08/23 08:38> Cosign ED Attending Cosignature Attestation: I was immediately available in the department for consultation. ?This documentation has been reviewed and I agree with assessment and plan. Supervised by Lloyd Hannon MD
[2023-05-24] MEDS: cefTRIAXone 1,000 MG in SODIUM CHLORIDE 0.9% 100 ML 200 MG IV (14:48)
== END 2023-05-24 15:27 | disposition home or self-care (01) ==
PROVIDERS: Emergency Medicine; Emergency Provider Physician Assistant; PCP Family Medicine
DX: N39.0 Urinary tract infection, site not specified (principal); R30.0 Dysuria
CPT/HCPCS: 36415; 74177; 80053; 83690; 85025; 87077; 87086; 87186; 96365; 96375; 99284; J0696; J2270; J2405; Q9967

== ENCOUNTER 2023-08-13 09:07 | Emergency (ER) | payer OTHER, SELFPAY ==
[2023-08-13] VITALS (11 sets, daily range): BP systolic 101–178; BP diastolic 53–72; PULSE 65–81; RESP 14–32; TEMP 37; O2SAT 97–100; BMI 27.6
--- NOTE | 2023-08-13 09:21 | DI.RAD.S_ITS ---
PROCEDURE: XR CHEST 1V INDICATIONS: chest pain TECHNIQUE: One view of the chest was acquired. COMPARISON: None. FINDINGS: Surgical changes and devices: None. Lungs and pleura: Lungs are clear. No pleural effusions or pneumothorax. Mediastinum: Mediastinal contours appear normal. Heart size is normal. Bones and chest wall: No suspicious bony lesions. Overlying soft tissues appear unremarkable. IMPRESSION: No acute process. Dictated by: Jonathon White M.D. on 08/13/2023 at 9:44 Approved by: Jonathon White M.D. on 08/13/2023 at 9:44
--- NOTE | 2023-08-13 09:48 | ED_ITS ---
HPI - Arrhythmia/Palpitations General Chief Complaint: Arrhythmia/Palpitations Stated Complaint: sob, back pain, trouble falling asleep Time Seen by Provider: 08/13/23 09:41 Source: patient Mode of arrival: Ambulatory Limitations: no limitations History of Present Illness HPI narrative: 32-year-old female vapes tobacco no other reported medical issues who presents with complaint of chest discomfort, sometimes tense jaw feels like she grinds her teeth upper thoracic neck pain that is sometimes causes headaches up into her neck. Some mild shortness of breath and nausea and loose stools for the past week. Patient states symptoms have been intermittent do not seem to be correlated to activity. 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 Patient states no fevers she is aware. No nasal congestion or cold cough symptoms. She states nausea but no vomiting. She is had loose stools this week but states she also started her menses recently which is typical for to have loose stools. She denies any black or bloody stools. No dysuria, urgency or frequency. No swelling of extremities. No rash or skin changes. Patient states no daily medications. Prior tubal ligation for surgery. Patient states no other medical issues. Vapes tobacco, rare alcohol, no recreational drugs or illicit. Family history no cardiac, pulmonary or embolic history with close relatives she states maternal grandparents did have lung issues. Patient states that she is had 1 or 2 these symptoms at times when she was anxious but not usually all of them at the same time. She would presented to the walk-in clinic and was referred here. Related Data Home Medications Medication Instructions Recorded Confirmed prasterone (dhea) 50 mg capsule 100 mg PO DAILY 02/08/23 05/24/23 (DHEA) Previous Rx's Medication Instructions Recorded epinephrine 0.3 mg/0.3 mL 0.3 mg (0.3 mL) IM ONCE #2 ea 02/06/23 injection, auto-injector ondansetron 4 mg disintegrating 4 mg PO Q6H PRN nausea and 02/08/23 tablet vomiting #10 tabs oxycodone 5 mg tablet 5 mg PO Q4H PRN pain #14 tabs 02/08/23 nitrofurantoin 100 mg PO BID #10 caps 02/12/23 monohydrate/macrocrystals 100 mg capsule (Macrobid) sulfamethoxazole 800 1 tab PO BID #14 tabs 05/24/23 mg-trimethoprim 160 mg tablet (Bactrim DS) Allergies Allergy/AdvReac Type Severity Reaction Status Date / Time pineapple Allergy Severe hot, Verified 05/24/23 12:36 itchy, tongue swells venom-wasp Allergy Severe Anaphylaxis Verified 05/24/23 12:36 Review of Systems Review of Systems ROS Unobtainable: All systems reviewed & are unremarkable except as noted in HPI and below Patient History Medical History Astigmatism Plantar warts (~1998) Substance abuse (~2007) Migraines (~2002) Autism ADHD (~2004) Foot pain (~2009) Chicken pox (~1995) Ovarian cyst (~2015) Irregular menstrual cycle (~2000) Heavy menstrual period (~2000) Encounter to establish care Constipation Irritable bowel Encounter for counseling regarding contraception Anxiety (~2009) Surgical History Anesthesia History of (~2010) History of oral surgery (~2001) Family History Mother Multiple sclerosis Father Mental health problem Grandfather Pneumonia Grandmother Hypertension Grandfather Alzheimer's dementia Grandmother Mental health problem Social History household members: spouse Smoking Status: Current every day smoker Tobacco: How many years used: 14 Smokeless tobacco user: other (nicotine vape ) alcohol intake: current substance use type: former substance user and marijuana (former ) Smoking Status: Current every day smoker tobacco type: vaping alcohol intake frequency: holidays/special occasions only Substance Use Type: does not use Exam Narrative Exam Narrative: GENERAL: Alert and oriented x three, well-appearing female in no acute distress. HEENT: Head normocephalic, atraumatic, EOMI, pupils reactive, face symmetric, moist mucous membranes NECK: Supple, full range of motion CARDIOVASCULAR: Regular rate and rhythm without murmurs, rubs or gallops. No JVD. No edema bilateral lower extremities. RESPIRATORY: Breath sounds equal bilaterally, no wheezes rales or rhonchi. No tachypnea or accessory muscle use. ABDOMEN: Soft, nontender. Normoactive bowel sounds all 4 quadrants. No guarding or rebound, rigidity, no mass : No CVA tenderness EXTREMITIES: Normal range of motion, no clubbing or edema. Neurovascularly intact NEUROLOGICAL: Cranial nerves II through XII grossly intact. Moving all extremities SKIN: Warm, dry, no petechiae, no rashes or lesions. Initial Vital Signs Initial Vital Signs: Vital Signs Temperature 98.6 F 08/13/23 09:10 Pulse Rate 76 08/13/23 09:10 Respiratory Rate 14 08/13/23 09:10 Blood Pressure 113/72 08/13/23 09:10 Pulse Oximetry 100 08/13/23 09:10 Oxygen Delivery Method Room Air 08/13/23 09:10 Scores HEART Score Heart Score history: Slightly Suspicious Heart Score EKG: Normal Heart Score Age: < 45 years old Heart Score risk factors: No known risk factors Heart Score troponin: < or = to normal limit Heart Score Total: 0 PERC Score Age greater than or equal to 50 years: No Heart rate greater than or equal to 100 bpm: No Room Air O2 Sat less than 95%: No Unilateral leg swelling: No Recent trauma or surgery: No Hemoptysis: No Prior PE or DVT: No Hormone Use: No Total PERC Score: 0 Course Orders Ordered: ED Orders 08/13/23 09:21 XR chest 1V Stat EKG-12 Lead Stat 08/13/23 09:35 Complete Blood Count AUTO DIFF Stat Comprehensive Metabolic Panel Stat Lipase Stat Magnesium Stat Troponin & CK Cardiac Panel Stat 08/13/23 10:00 Covid-19 + FLU A/B + RSV - PCR Stat 08/13/23 10:13 D Dimer Stat PTT Partial Thromboplastin Mahad Stat Prothrombin Time INR Stat Vital Signs Vital signs: Vital Signs - 8 hr 08/13/23 10:30 08/13/23 11:00 08/13/23 11:30 Pulse Rate 66 69 69 Respiratory Rate 19 17 15 Blood Pressure Pulse Oximetry 98 97 97 Oxygen Delivery Method Room Air 08/13/23 11:36 08/13/23 11:36 08/13/23 12:00 Pulse Rate 65 Respiratory Rate 18 Blood Pressure 108/53 L 111/69 Pulse Oximetry 97 Oxygen Delivery Method 08/13/23 12:00 08/13/23 12:30 08/13/23 12:30 Pulse Rate 79 77 Respiratory Rate 23 32 H Blood Pressure 101/60 Pulse Oximetry 97 98 Oxygen Delivery Method MDM - Arrhythmia/Palpitations Lab Data 08/13/23 09:35 08/13/23 09:35 Labs: Lab Results 08/13/23 08/13/23 08/13/23 Range/Units 09:35 10:00 10:13 WBC 7.5 (4.5-11.0) X10^3/uL RBC 4.59 (4.0-5.2) X10^6/uL Hgb 13.6 (12.0-16.0) g/dL Hct 39.5 (36-46) % MCV 86.0 (80-100) fL MCH 29.6 (26-34) PG MCHC 34.4 (30-36) % RDW 12.6 (11.6-14.8) % Plt Count 501 H (150-400) X10^3/uL Neut % (Auto) 47.2 L (50-75) % Lymph % (Auto) 43.1 H (25-40) % [place] % (Auto) 6.8 (3-14) % Eos % (Auto) 2.0 (2-4) % Baso % (Auto) 0.9 (0-2) % Neut # (Auto) 3500 (2466-6779) /uL Lymph # (Auto) 3200 (0719-2254) /uL [place] # (Auto) 500 (0-900) /uL Eos # (Auto) 100 (0-450) /uL Baso # (Auto) 100 (0-100) /uL PT 11.6 (9.4-12.5) SECONDS INR 1.0 (0.9-1.3) APTT 30 (25.1-36.5) SECONDS D-Dimer 216 (<500) ng/ml Sodium 137 (137-145) mmol/L Potassium 3.9 (3.4-5.1) mmol/L Chloride 103 (98-107) mmol/L Carbon Dioxide 25 (22-32) mmol/L BUN 12 (7-17) mg/dL Creatinine 0.63 (0.52-1.04) mg/dL Estimated GFR > 60 (>60) mL/min BUN/Creatinine Ratio 19.0 (6-22) Glucose 99 (70-100) mg/dL Calcium 9.8 (8.4-10.2) mg/dL Magnesium 2.0 (1.6-2.3) mg/dL Total Bilirubin 0.5 (0.2-1.3) mg/dL AST 24 (14-36) IU/L ALT 20 (<35) IU/L Alkaline Phosphatase 50 (38-126) U/L Total Creatine Kinase 79 (30-135) U/L Troponin I < 0.012 (0.01-0.034) ng/mL Total Protein 7.7 (6.3-8.2) g/dL Albumin 4.5 (3.5-5.0) g/dL Globulin 3.2 (1.7-4.1) g/dL Albumin/Globulin Ratio 1.4 (1.0-2.8) Lipase 163 (23-300) U/L SARS-CoV-2 (PCR) Negative (Negative) Influenza A (RT-PCR) Flu a negative (NEGATIVE) Influenza B (RT-PCR) Flu b negative (NEGATIVE) RSV (PCR) Negative (Negative) Imaging Data Chest x-ray: Radiologist's Impresson: Close Chest X-Ray (Signed) Jonathon White - 08/13/23 Abdomen/Pelvis CT (Signed) Dimitri Smith - 05/24/23 KUB X-Ray (Signed) Savanah Oropeaz - 02/24/22 [place] [id number] XRay Report Signed Patient: Nubia Corado MR#: [id number] : 1990 Acct:[id number] Age/Sex: 32 / F Date of Service: 08/13/23 Loc: ED Accession Number: [id number] Procedure: XR chest 1V Ordering Provider: Zehra Harris D.O. PROCEDURE: XR CHEST 1V INDICATIONS: chest pain TECHNIQUE: One view of the chest was acquired. COMPARISON: None. FINDINGS: Surgical changes and devices: None. Lungs and pleura: Lungs are clear. No pleural effusions or pneumothorax. Mediastinum: Mediastinal contours appear normal. Heart size is normal. Bones and chest wall: No suspicious bony lesions. Overlying soft tissues appear unremarkable. IMPRESSION: No acute process. Dictated by: Jonathon White M.D. on 08/13/2023 at 9:44 Approved by: Jonathon White M.D. on 08/13/2023 at 9:44 ECG Data Attestation: I personally reviewed and interpreted this ECG as follows: Interpretation: Sinus rhythm rate of 72 ND 150 QRS is [address]TC [address] acute [address] elevation depression. Q 3 T3. No S1. No priors for comparison. MDM Narrative Medical decision making narrative: 32-year-old female with prior tubal ligation, vapes tobacco but no other reported medical issues with constellation of symptoms that typically she will have independently when she is feeling anxious but not altogether. Describes some chest discomfort, neck and jaw tenseness, shortness of breath palpitations nausea and loose stools. Patient states she did start her menses this week. She has not had any other upper respiratory or viral illness symptoms. Patient's does not have high-risk factors for cardiac event or PE. Patient's labs Chest x-ray is negative for acute change. EKG shows Q 3 T3 but no other acute or dynamic changes. No prior for comparison. Respiratory swab for COVID/influenza/RSV is negative. CBC shows platelets of 501 lymphocytes are slightly elevated neutrophils are low, patient has otherwise normal white count, platelets. Coags are negative dimer is negative. Electrolytes, creatinine and LFTs and troponin are all negative. Heart score is 1 Perc score is 0 Discussed findings with patient. Based on the length of her symptoms do not feel that she requires further workup at this time but did encourage patient to follow up for Holter monitor or ZIO patch or similar with palpitations and symptoms. Discharge Plan Departure Patient Disposition: Home Clinical Impression: Palpitations Activity Restrictions/Additional Instructions: Follow-up with primary care for recheck. Your workup today did not show any acute changes if you continue to have sensation such as shortness of breath chest discomfort palpitations I would recommend following up for Holter monitor or ZIO patch as well as further workup. Please return if you have new or worsening symptoms increasing chest pain, shortness of breath, passing out, new swelling of her extremities, persistent vomiting, black or bloody stools or other new or concerning changes. Prescriptions: No Action epinephrine 0.3 mg/0.3 mL auto-injector 0.3 mg IM ONCE Qty: 2 3RF Rx Instructions: may repeat once nitrofurantoin monohyd/m-cryst [Macrobid] 100 mg capsule 100 mg PO BID Qty: 10 0RF Rx Instructions: must administer with a meal/food sulfamethoxazole-trimethoprim [Bactrim DS] 800-160 mg tablet 1 tab PO BID Qty: 14 0RF DHEA 50 mg Capsule 100 mg PO DAILY oxycodone 5 mg tablet 5 mg PO Q4H PRN (Reason: pain) Qty: 14 0RF ondansetron 4 mg tablet,disintegrating 4 mg PO Q6H PRN (Reason: nausea and vomiting) Qty: 10 0RF Referrals: Denise Amaya DO [Primary Care Provider] - Stand Alone Forms: Patient Portal/API, Work Release Note
[2023-08-13 09:55] LABS: Add Manual Diff / Slide Review NO; Basophils Absolute Auto 100 /uL (0-100); Basophils Percent Auto 0.9 % (0-2); Eosinophils Absolute Auto 100 /uL (0-450); Hematocrit 39.5 % (36-46); Hemoglobin 13.6 g/dL (12.0-16.0); Lymphocytes Absolute Auto 3200 /uL (1100-4500); Lymphocytes Percent Auto 43.1 % (25-40); Mean Corpuscular HGB Conc 34.4 % (30-36); Mean Corpuscular Hemoglobin 29.6 PG (26-34); Monocytes Absolute Auto 500 /uL (0-900); Monocytes Percent Auto 6.8 % (3-14); Neutrophils Absolute Auto 3500 /uL (1500-7000); Neutrophils Percent Auto 47.2 % (50-75); Platelet Count 501 X10^3/uL (150-400); Red Blood Cell Count 4.59 X10^6/uL (4.0-5.2); Red Cell Distribution Width 12.6 % (11.6-14.8); White Blood Cell Count 7.5 X10^3/uL (4.5-11.0)
[2023-08-13 10:17] LABS: Alanine Aminotransferase 20 IU/L (<35); Albumin 4.5 g/dL (3.5-5.0); Albumin Globulin Ratio 1.4 (1.0-2.8); Alkaline Phosphatase 50 U/L (38-126); Aspartate Aminotransferase 24 IU/L (14-36); Bilirubin Total 0.5 mg/dL (0.2-1.3); Blood Urea Nitrogen 12 mg/dL (7-17); Calcium 9.8 mg/dL (8.4-10.2); Carbon Dioxide 25 mmol/L (22-32); Chloride 103 mmol/L (98-107); Creatine Kinase 79 U/L (30-135); Estimated Glomerular Filt Rate > 60 mL/min (>60); Globulin 3.2 g/dL (1.7-4.1); Glucose 99 mg/dL (70-100); HEMOLYSIS < 15 (0-50); Lipase 163 U/L (23-300); Potassium 3.9 mmol/L (3.4-5.1); Sodium 137 mmol/L (137-145); Total Protein 7.7 g/dL (6.3-8.2)
[2023-08-13 10:27] LABS: Prothrombin Time 11.6 SECONDS (9.4-12.5)
[2023-08-13 10:28] LABS: Troponin I < 0.012 ng/mL (0.01-0.034)
[2023-08-13 10:29] LABS: D Dimer 216 ng/ml (<500)
[2023-08-13 10:30] LABS: PTT Partial Thromboplastin Tim 30 SECONDS (25.1-36.5)
[2023-08-13 10:51] LABS: Influenza A - CEPHEID Flu A NEGATIVE (NEGATIVE); Influenza B - CEPHEID Flu B NEGATIVE (NEGATIVE); Respiratory Syncytial Virus Negative (Negative)
[2023-08-13 10:55] LABS: COVID-19 CEPHEID 4-PLEX PCR Negative (Negative)
== END 2023-08-13 12:39 | disposition home or self-care (01) ==
PROVIDERS: Emergency Provider Emergency Medicine; PCP Family Medicine
DX: R07.9 Chest pain, unspecified (principal); R00.2 Palpitations; M54.2 Cervicalgia
CPT/HCPCS: 0241U; 36415; 71045; 80053; 82550; 83690; 83735; 84484; 85025; 85379; 85610; 85730; 93005; 93010; 99284

== ENCOUNTER → 2023-08-30 11:20 | Outpatient (CLI) | payer OTHER, SELFPAY ==
[2023-08-30 13:34] LABS: C-Reactive Protein Quant 0.6 mg/dL (<1.0)
[2023-09-02 16:38] LABS: ANA Screen, IFA Negative (.)
== END ==
PROVIDERS: PCP Family Medicine; Referring Provider Family Medicine; Visit Provider Family Medicine
DX: M79.10 Myalgia, unspecified site (principal); R53.83 Other fatigue
CPT/HCPCS: 36415; 86038; 86140

== ENCOUNTER → 2023-09-05 13:43 | Outpatient (CLI) | payer OTHER, SELFPAY | LOC: CAR 13:44 | PROVIDERS: PCP Family Medicine; Referring Provider Family Medicine; Visit Provider Family Medicine | DX: R00.2 Palpitations (principal); R06.02 Shortness of breath; R07.9 Chest pain, unspecified | CPT/HCPCS: 93242 ==